=== PATIENT | male | born 1955 | race Caucasian/White ===

== ENCOUNTER → 2016-11-21 | Day surgery (SDC) | payer OTHER | LOC: MSO 13:30 | DX: Z12.11 Encounter for screening for malignant neoplasm of colon (principal); J44.9 Chronic obstructive pulmonary disease, unspecified; J45.909 Unspecified asthma, uncomplicated; Z87.891 Personal history of nicotine dependence; K21.9 Gastro-esophageal reflux disease without esophagitis | CPT/HCPCS: 00810; J3010; J7120 ==

== ENCOUNTER 2021-04-20 08:28 | Outpatient (RCR) | payer MEDICARE, OTHER | END 2021-07-19 | LOC: PT | DX: M25.569 Pain in unspecified knee (principal) ==

== ENCOUNTER → 2024-07-17 | Day surgery (SDC) | payer MEDICARE, OTHER ==
[~2024-07-17] MED LIST: Balanced Salt Ophth Irrig 15 ML BOTTLE *BULK OP SCH; Cyclopentolate 2% Ophth Soln 1 BOTTLE *BULK OP SCH; EPINEPHrine 1 MG/ML (1:1000) 1 ML AMP IR SCH; Ketorolac 0.5% Ophth Soln 5 ML Bottle *BULK OP SCH; Midazolam 2 MG/2 ML VIAL IV ONE; Phenylephrine 10% Ophth Soln 5 ML BOTTLE *BULK OP SCH; Polymyxin B Sulfate/Trimethoprim Ophth Soln 10 ML BOTTLE *BULK OP SCH; Povidone Iodine 5% Ophth Soln 30 ML BOTTLE *BULK OP SCH; Proparacaine 0.5% Ophth Soln 15 ML BOTTLE *BULK OP SCH; Tropicamide 1% Ophth Soln Bottle *BULK OP SCH
== END ==
LOC: MSO 07:54
DX: E11.36 Type 2 diabetes mellitus with diabetic cataract (principal); H25.12 Age-related nuclear cataract, left eye; G47.33 Obstructive sleep apnea (adult) (pediatric); Z87.19 Personal history of other diseases of the digestive system; Z85.828 Personal history of other malignant neoplasm of skin; Z79.85 Long-term (current) use of injectable non-insulin antidiabetic drugs
CPT/HCPCS: 00142; J0171; J2250; V2632

== ENCOUNTER → 2024-07-31 | Day surgery (SDC) | payer MEDICARE, OTHER | END | disposition home or self-care (01) | LOC: MSO 07:25 | DX: H25.11 Age-related nuclear cataract, right eye (principal) | CPT/HCPCS: 00142; J0171; J2250; V2632 ==